=== PATIENT | male | born 2000 | race Caucasian/White ===

== ENCOUNTER 2020-07-02 16:28 | Emergency (ER) | payer OTHER, SELFPAY ==
--- NOTE | ~2020-07-02 | XR_ITS ---
EXAMINATION: XR shoulder LT min 2V DATE: 07/02/2020 17:19 INDICATION: Left shoulder pain. TECHNIQUE: 4 views of left shoulder were obtained. COMPARISON: None. FINDINGS: Bone alignment is normal. No fracture. Glenohumeral joint is normal. There is mild osteoart hritis of the acromioclavicular joint. IMPRESSION: 1. Mild osteoarthritis of the acromioclavicular joint. Reviewed, dictated and finalized at location A. VACUUM TESTER
--- NOTE | ~2020-07-02 | XR_ITS ---
XR elbow LT min 3V 07/02/2020 17:19 Indication: Left elbow pain and swelling Procedure: 4 views left elbow Comparison: No prior studies for comparison. Findings: There is a nondisplaced radial head fracture. Moderate joint effusion. No other fracture is identified. No foreign bodies. Impression: 1: Nondisplaced radial head fracture. Reviewed, dictated and finalized at location A. ITY AUDIT REPRESENTATIVE Impression: 1: Nondisplaced radial head fracture.
[2020-07-02 16:27] VITALS: BP 130/59; PULSE 69; RESP 16; TEMP 37.2; O2SAT 97
--- NOTE | 2020-07-02 16:48 | ED.UPPEXIN ---
HPI - Extremity Injury (Upper) General Chief Complaint: Extremity Injury, Upper Stated Complaint: L SHOULDER INJURY Time Seen by Provider: 07/02/20 16:29 Source: patient Mode of arrival: EMS Limitations: no limitations History of Present Illness HPI narrative: This is a 20-year-old male that presents the emergency department for left shoulder injury sustained just prior to arrival. Reports he was skateboarding and got going a little too fast down a hill. Reports he fell off of his skateboard onto the sidewalk. Reports falling onto his left shoulder. Reports since he has had left shoulder pain and swelling. Also reports decreased range of motion in the shoulder due to pain. Reports discomfort in the left elbow as well. Denies hitting his head, loss of consciousness, vision changes, vomiting, or numbness. Review of Systems Review of Systems: Narrative: CONSTITUTIONAL: Denies fever EYES: Denies visual changes GASTROINTESTINAL: Denies vomiting MUSCULOSKELETAL: Reports joint pain, and myalgia. NEUROLOGIC: Denies headache, numbness, or weakness. All systems reviewed & are unremarkable except as noted in HPI and below PMFSH Past Medical History Medical History (Updated 07/02/20 @ 17:43 by Kylah Larkin PA-C) No active medical problems Social History Social History (Updated 07/02/20 @ 16:50 by Kylah Larkin PA-C) Substance use: never Exam Narrative: Exam Narrative: GENERAL: Well-appearing, well-nourished, and in no acute distress. HEAD: Normocephalic, atraumatic. EYES: PERRLA and EOMI. ENT: Nares clear, no rhinorrhea or epistaxis. Mucous membranes moist. Oropharynx without tonsillar hypertrophy exudate or other lesions. Bilateral TMs pearly maldonado non-bulging NECK: Supple. No adenopathy or masses. No midline cervical spine tenderness CHEST: Clear to auscultation. No respiratory distress. No wheezes rales or rhonchi HEART: Regular rate and rhythm. No murmur heard. Normal peripheral pulses. BACK: No midline thoracic or lumbar spine tenderness EXTREMITIES: Normal range of motion, except mildly decreased active range of motion in the left shoulder due to pain. Left clavicle with mild swelling, tender to palpation. Normal radial pulses. Normal sensation SKIN: Warm, dry, no rash. NEURO: No focal deficits. Alert and oriented x3. Cranial nerves II through XII grossly intact PSYCH: Normal mood and affect Course Vital Signs Vital signs: Vital Signs Temperature 99 F 07/02/20 16:27 Pulse Rate 69 07/02/20 16:27 Respiratory Rate 16 07/02/20 16:27 Blood Pressure 130/59 L 07/02/20 16:27 Pulse Oximetry 97 07/02/20 16:27 Temperature 99 F 07/02/20 16:27 Pulse Rate 69 07/02/20 16:27 Respiratory Rate 16 07/02/20 16:27 Blood Pressure 130/59 L 07/02/20 16:27 Pulse Oximetry 97 07/02/20 16:27 MDM - Extremity Injury (Upper) MDM Narrative Medical decision making narrative: Patient presents to the emergency department for left shoulder and elbow pain after an injury today. Left shoulder x-ray is without acute findings. Elbow x-ray shows a nondisplaced radial head fracture. Patient placed in a sling and will be given orthopedics for follow-up. He was given warnings to return to the ER Imaging Data Radiologist's impression: ITS Impressions Elbow X-Ray 07/02/20 17:23 Impression: 1: Nondisplaced radial head fracture. Shoulder X-Ray 07/02/20 17:23 IMPRESSION: 1. Mild osteoarthritis of the acromioclavicular joint. Critical Care Time Critical Care Time Critical Care Time: No Discharge Plan Discharge Clinical Impression: Closed nondisplaced fracture of head of left radius Qualifiers: Encounter type: initial encounter Qualified Code(s): S52.125A - Nondisplaced fracture of head of left radius, initial encounter for closed fracture Patient Disposition: Home, Self-Care Condition: Stable Instructions: Elbow Fracture (ED) Additional Instructions: Return to the
== END 2020-07-02 18:02 | disposition home or self-care (01) ==
LOC: ANHED 18:06
PROVIDERS: Emergency Provider Emergency Medicine; PCP Family Medicine
DX: S52.125A Nondisplaced fracture of head of left radius, initial encounter for closed fracture (principal); V00.131A Fall from skateboard, initial encounter
CPT/HCPCS: 73030; 73080; 99284; A4565

== ENCOUNTER 2022-07-12 13:36 | Emergency (ER) | payer OTHER, SELFPAY ==
--- NOTE | ~2022-07-12 | XR_ITS ---
XR chest 2V DATE: 07/12/2022 15:10 INDICATION: Shortness of breath, productive cough TECHNIQUE: PA and lateral views COMPARISON: None FINDINGS: Normal heart size. No hilar or mediastinal enlargement. No pulmonary infiltrate or consolid ation, pleural effusion or pulmonary vascular congestion or pneumothorax. Included skeletal structure s are unremarkable. IMPRESSION: Negative Reviewed, dictated and finalized at location B. IMPRESSION: Negative
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
[2022-07-12 13:37] VITALS: BP 139/87; PULSE 70; RESP 18; TEMP 37.3; O2SAT 100
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
[2022-07-12] MEDS: ACETAMINOPHEN 500 MG TABLET 1000 MG PO (15:11)
[2022-07-12 15:58] LABS: Influenza A QL RT-PCR Negative (Negative); Influenza B QL RT-PCR Negative (Negative); SARS-CoV-2 RNA PCR Negative
== END 2022-07-12 16:21 | disposition home or self-care (01) ==
PROVIDERS: Emergency Provider Physician Assistant
DX: S09.90XA Unspecified injury of head, initial encounter (principal); B34.9 Viral infection, unspecified; Z20.822 Contact with and (suspected) exposure to COVID-19; Y04.0XXA Assault by unarmed brawl or fight, initial encounter
CPT/HCPCS: 70450; 70486; 71046; 87636; 99284; A9270

== ENCOUNTER 2022-08-09 16:37 | Emergency (ER) | payer OTHER, SELFPAY ==
[2022-08-09] VITALS (7 sets, daily range): BP systolic 114–137; BP diastolic 66–82; PULSE 53–76; RESP 12–18; TEMP 37–37.2; O2SAT 94–98
--- NOTE | ~2022-08-09 | XR_ITS ---
XR chest 2V DATE: 08/09/2022 17:24 INDICATION: Cough, shortness of breath. Loss of appetite. TECHNIQUE: PA and lateral views COMPARISON: 07/12/2022 PA and lateral chest FINDINGS: Normal heart size. No hilar or mediastinal enlargement. No pulmonary infiltrate or consolid ation, pleural effusion or pulmonary vascular congestion or pneumothorax is detected. IMPRESSION: No active cardiopulmonary disease Reviewed, dictated and finalized at location B.
--- NOTE | 2022-08-09 17:14 | ED.GENADULT ---
HPI - General Adult General Chief complaint: Unspecified <Ana Blum PA-C - Last Filed: 08/09/22 20:22> Stated complaint: decreased appetite. <Ana Blum PA-C - Last Filed: 08/09/22 20:22> Time Seen by Provider: 08/09/22 17:02 <Ana Blum PA-C - Last Filed: 08/09/22 20:22> History of Present Illness HPI narrative: 22 y/o M with a reported history of arthritis and chronic pain reports for evaluation of numbness in his throat x6 days, feeling out of his head for months, cough, difficulty swallowing solid foods and decreased appetite. He denies fever, body aches, abdominal pain, chest pain, n/v. Reports marijuana use, denies other drug use. He denies odynophagia, but reports increasing dysphagia to solid foods. Denies dysphagia to liquids. <EDUARDO Allison Last Filed: 08/09/22 20:22> Related Data Home medications: Home Medications Medication Instructions Recorded Confirmed No Home Medications 07/12/22 07/12/22 <EDUARDO Allison Last Filed: 08/09/22 20:22> Allergies/adverse reactions: Allergies Allergy/AdvReac Type Severity Reaction Status Date / Time amoxicillin Allergy Rash Verified 08/09/22 16:46 <EDUARDO Allison Last Filed: 08/09/22 20:22> Review of Systems Review of Systems: CONSTITUTIONAL: Denies fever, chills EYES: Denies visual changes, redness, or discharge. ENT: See HPI CARDIOVASCULAR: Denies chest pain, palpitations, or edema. RESPIRATORY: See HPI GASTROINTESTINAL: Denies abdominal pain, nausea, vomiting GENITOURINARY: Denies dysuria or hematuria. SKIN: Denies rash or itching. MUSCULOSKELETAL: Denies back pain, joint pain, or myalgia. NEUROLOGIC: Denies headache, dizziness, or weakness. PSYCHIATRIC: Denies anxiety or depression. <EDUARDO Allison Last Filed: 08/09/22 20:22> PMFSH Past Medical History Medical History: Medical History No active medical problems <Ana Blum PA-C - Last Filed: 08/09/22 20:22> Social History Social History: Social History Substance use: never <Ana Blum PA-C - Last Filed: 08/09/22 20:22> Exam Narrative: GENERAL: Well-appearing, well-nourished, and in no acute distress. Patient resting comfortably in exam bed. He is pleasant and conversational. HEAD: Normocephalic, atraumatic. EYES: PERRLA and EOMI. Visual acuity 20/25 lonny, 20/25 R, 20/25 L ENT: Nares clear, no rhinorrhea or epistaxis. Mucous membranes moist. Bilateral tonsils with cobblestoning, no hypertrophy or erythema to tonsils or posterior pharynx. Uvula with scattered petechiae, no uvular deviation or edema. Bilateral TMs pearly maldonado nonbulging NECK: Supple. No adenopathy or masses. No lymphadenopathy. Thyroid normal in size, no goiter appreciated CHEST: Clear to auscultation. No respiratory distress. No wheezes rales or rhonchi HEART: Regular rate and rhythm. No murmur heard. Normal peripheral pulses. ABDOMEN: Soft, nontender, nondistended, normal active bowel sounds. EXTREMITIES: Normal range of motion. No edema. SKIN: Warm, dry, no rash. NEURO: No focal deficits. Alert and oriented x3. Cranial nerves II through XII intact. Uvular rise with phonation. Patient able to swallow. Strength 5/5 in bilateral upper and lower extremities. Sensation intact throughout. Normal gait. PSYCH: Normal mood and affect. <Ana Blum PA-C - Last Filed: 08/09/22 20:22> Course Course Emergency Course: Pt declines Motrin and Tylenol. 193: Awaiting urine sample from patient. Patient sleeping in exam bed. <Ana Blum PA-C - Last Filed: 08/09/22 20:22> CLOAK ROOM ATTENDANT/PA Physician Supervision This is a was performed by both a physician and an APC. I performed all aspects of the MDM as documented w/ the following additions: 22-year-old male presenting with difficulty
[2022-08-09 17:22] LABS: Strep Group A RT-PCR NOT DETECTED (Negative)
[2022-08-09 17:32] LABS: Basophils Absolute Auto 0.1 K/mm3 (0.0-0.1); Basophils Percent Auto 0.7 % (0.2-1.2); Eosinophils Absolute Auto 0.1 K/mm3 (0-0.3); Eosinophils Percent Auto 1.4 % (0-4.4); Hematocrit 47.5 % (42.0-52.0); Immature Granulocyte Absolute 0.02 K/mm3 (0.00-0.031); Immature Granulocyte Percent A 0.3 % (0-0.5); Lymphocytes Absolute Auto 1.82 K/mm3 (0.9-3.2); Lymphocytes Percent Auto 25.1 % (18.3-44.2); Mean Corpuscular HGB Conc 35.8 g/dl (32-36); Mean Corpuscular Hemoglobin 30.4 pg (26-34); Mean Corpuscular Volume 84.8 fl (80-100); Mean Platelet Volume 9.8 fl (7.4-10.4); Monocytes Absolute Auto 0.5 K/mm3 (0.1-0.6); Monocytes Percent Auto 7.2 % (2.6-8.5); Neutrophils Absolute Auto 4.7 K/mm3 (1.3-6.7); Neutrophils Percent Auto 65.3 % (45.5-73.1); Platelet Count Result 197 k/mm3 (150-375); Red Cell Distribution Width 12.3 % (11.5-14.5); White Blood Count 7.3 K/mm3 (4.5-10.0)
[2022-08-09 17:33] LABS: Influenza A QL RT-PCR Negative (Negative); Influenza B QL RT-PCR Negative (Negative); SARS-CoV-2 RNA PCR Negative
[2022-08-09 17:42] LABS: Alanine Aminotransferase 19 U/L (6-50); Albumin Level 5.1 g/dL (3.5-5.1); Alkaline Phosphatase 51 U/L (38-126); Anion Gap 8 mmol/L (8-16); Aspartate Amino Transferase 24 U/L (17-59); Bilirubin,Total 2.4 mg/dL (0.2-1.3); Blood Urea Nitrogen 11 mg/dL (9-20); Calcium 9.5 mg/dL (8.4-10.2); Carbon Dioxide 27 mmol/L (22-30); Chloride 102 mmol/L (98-107); Estimated CRCL calculation 130 ml/min; Estimated Glomerular Filt Rate > 60; Glucose 80 mg/dL (65-110); Potassium 3.9 mmol/L (3.4-5.0); Sodium 137 mmol/L (137-145)
[2022-08-09 17:58] LABS: Monoscreen Negative (Negative); Negative Monotest Control Negative (Negative); Positive Monotest Control Positive (Positive)
[2022-08-09 19:44] LABS: Amphetamine Screen Urine Negative (Negative); Barbiturate Screen Urine Negative (Negative); Benzodiazepines Screen Urine Negative (Negative); Cannabinoid Screen Urine Positive (Negative); Cocaine Screen Urine Negative (Negative); Methadone Screen Urine Negative (Negative); Opiate Screen Urine Negative (Negative); Phencyclidine Screen Urine Negative (Negative)
== END 2022-08-09 20:24 | disposition home or self-care (01) ==
PROVIDERS: Emergency Medicine; Emergency Provider Physician Assistant; PCP Family Medicine
DX: R13.10 Dysphagia, unspecified (principal); Z20.822 Contact with and (suspected) exposure to COVID-19; M19.90 Unspecified osteoarthritis, unspecified site; G89.29 Other chronic pain
CPT/HCPCS: 36415; 71046; 80053; 80307; 84443; 85025; 86308; 87636; 87651; 99283

== ENCOUNTER 2022-08-11 06:00 | Emergency (ER) | payer OTHER, SELFPAY ==
[2022-08-11 06:08] VITALS: BP 135/85; PULSE 77; RESP 18; TEMP 36.9; O2SAT 99
--- NOTE | 2022-08-11 07:21 | PC.NURSE ---
Patient report received from VARUN Restrepo. All questions answered and care of patient assumed.
[2022-08-11] MEDS: SODIUM CHLORIDE 0.9% IV 1,000 ML 999 ML IV CONT (08:20)
[2022-08-11] MEDS: LIDOCAINE HCL 2% VISC SOLN 15 ML UDC PO (08:20)
--- NOTE | 2022-08-11 08:53 | ED.GENADULT ---
HPI - General Adult General Chief complaint: Neck Pain/Injury Stated complaint: Throat pain Time Seen by Provider: 08/11/22 07:03 History of Present Illness HPI narrative: Patient is a 22-year-old male who presents ER with sore throat. Reports last week. He was seen in the ER 2 days ago. Negative COVID and strep testing. Normal labs. Today felt like he could see his epiglottis in the mirror which alarmed him. He has been having sinus congestion with postnasal drip. Also productive cough. No fevers or chills or sweats. No chest pain or chest pressure. Patient reports he gets some tightness in his throat and will feel anxious. Related Data Allergies Allergy/AdvReac Type Severity Reaction Status Date / Time amoxicillin Allergy Rash Verified 08/11/22 07:42 Review of Systems Review of Systems: All systems reviewed & are unremarkable except as noted in HPI and below Constitutional: Constitutional: Denies chills, Denies fatigue and Denies fever(s) ENT: Reports nasal congestion and Reports sore throat Cardiovascular: Cardiovascular: Denies chest pain, Denies rapid heart rate and Denies radiating jaw, neck or arm pain Respiratory: Respiratory: Reports cough and Reports dyspnea Gastrointestinal: Gastrointestinal: Denies abdominal pain, Denies nausea and Denies vomiting PMFSH Past Medical History Medical History No active medical problems Social History Social History Substance use: never Exam Narrative: GENERAL: Well-appearing, well-nourished, and in no acute distress. HEAD: Normocephalic, atraumatic. EYES: PERRL and EOMI. ENT: Mucous membranes moist. Pharyngeal erythema without tonsillar hypertrophy or exudate. Uvula midline and nonedematous. Tolerating oral secretions without issue. NECK: Anterior cervical chain lymphadenopathy, no swelling of the neck with normal range of motion. CHEST: Clear to auscultation. No respiratory distress. HEART: Regular rate and rhythm. Normal peripheral pulses. EXTREMITIES: Normal range of motion. No edema. NEURO: Alert and oriented x3. PSYCH: Normal mood and affect. Course Course Emergency Course: Throat discomfort resolved with viscous lidocaine. Feels improved with IV fluid as he reports feeling brief dizziness today. Educated on treatment plan including throat lozenges for comfort. Patient verbalized understanding. Discharge home. Vital Signs Vital signs: Vital Signs Temperature 98.5 F 08/11/22 06:08 Pulse Rate 77 08/11/22 06:08 Respiratory Rate 18 08/11/22 06:08 Blood Pressure 135/85 08/11/22 06:08 Pulse Oximetry 99 08/11/22 06:08 Temperature 98.5 F 08/11/22 06:08 Pulse Rate 77 08/11/22 06:08 Respiratory Rate 18 08/11/22 06:08 Blood Pressure 135/85 08/11/22 06:08 Pulse Oximetry 99 08/11/22 06:08 Medical Decision Making Vital Signs Vital Signs: Vital Signs Temperature 98.5 F 08/11/22 06:08 Pulse Rate 77 08/11/22 06:08 Respiratory Rate 18 08/11/22 06:08 Blood Pressure 135/85 08/11/22 06:08 Pulse Oximetry 99 08/11/22 06:08 Temperature 98.5 F 08/11/22 06:08 Pulse Rate 77 08/11/22 06:08 Respiratory Rate 18 08/11/22 06:08 Blood Pressure 135/85 08/11/22 06:08 Pulse Oximetry 99 08/11/22 06:08 Discharge Plan Discharge Clinical Impression: Sore throat, URI (upper respiratory infection) Patient Disposition: Still a Patient Condition: Stable Instructions: Upper Respiratory Infection (ED) Additional Instructions: Return the ER if you cannot breathe, you cannot swallow, you lose consciousness, you have additional concerns. Prescriptions: New Cepacol Sore Throat (brenda-men) 15-2.6 mg lozenge 1 luis manuel mucous membrane Q2-4H PRN (Reason: sore throat) Qty: 16 0RF Follow-up/Referrals: Anton Palomo M.D. [Primary Care Provider] - 1 Week
[2022-08-11 09:37] VITALS: BP 125/83; PULSE 54; RESP 16; O2SAT 98
--- NOTE | 2022-08-20 19:52 | PC.NURSE ---
IVFs completed on 08/11/22 at 0920. Unable to document on JUN.
== END 2022-08-11 09:38 | disposition home or self-care (01) ==
PROVIDERS: Emergency Provider Emergency Medicine; PCP Family Medicine
DX: J06.9 Acute upper respiratory infection, unspecified (principal); J20.9 Acute bronchitis, unspecified
CPT/HCPCS: 96360; 99283; J7030

== ENCOUNTER 2022-08-26 13:36 | Outpatient (CLI) | payer OTHER, SELFPAY ==
[2022-09-03 21:52] LABS: Calprotectin, Stool 6 mcg/g
== END 2022-08-26 13:37 | disposition home or self-care (01) ==
LOC: ANHLAB 13:37
PROVIDERS: PCP Family Medicine; Visit Provider Nurse Practitioner Family
DX: R19.7 Diarrhea, unspecified (principal)
CPT/HCPCS: 83993

== ENCOUNTER 2022-09-01 05:46 | Day surgery (SDC) | payer OTHER, SELFPAY ==
[2022-08-26 13:44] VITALS: BMI 23.1
[2022-09-01 09:01] VITALS: BP 120/75; PULSE 55; RESP 15; TEMP 36.6; O2SAT 98; BMI 22.4
[2022-09-01] MEDS: LACTATED RINGERS 1,000 ML 150 ML IV CONT (09:09)
--- NOTE | 2022-09-01 09:35 | WPDANESEPPF ---
Anes - Initial Pre Proc Eval Procedure: Operation Date: 09/01/22 10:15 Proposed Procedures p Esophagogastroduodenoscopy - Wagner Nuñez MD Date/Time: 09/01/22 09:35 Surgeon: Wagner Nuñez MD Pre Op Diagnosis: dysphagia Patient Data Age: 22 Gender: M Height: 1.8 m Weight: 73 kg Last Vital Signs Temp 98 F 09/01/22 09:01 Pulse 55 L 09/01/22 09:01 Resp 15 09/01/22 09:01 BP 120/75 09/01/22 09:01 Pulse Ox 98 09/01/22 09:01 O2 Del Method Room Air 09/01/22 09:01 Allergies Allergy/AdvReac Type Severity Reaction Status Date / Time amoxicillin Allergy Rash Verified 09/01/22 09:00 Home Medications Medication Instructions Recorded Confirmed Type Vitamin C 1 tab-cap PO DAILY 08/26/22 09/01/22 History Vitamin D3 1 tab-cap PO DAILY 08/26/22 09/01/22 History Patient hx anesthesia problems: none Family hx anesthesia problems: none Results Review: All pre-operative results and documents have been reviewed as part of the pre-operative evaluation. [facility] Past Medical History Medical History (Updated 08/25/22 @ 14:07 by Jim Caba) Arthritis No active medical problems Social History Social History Smoking status: Never smoker Alcohol intake: never Substance use: current Substance use type: marijuana Living arrangements: with roommate(s) Spiritual care concerns: No Anes - Eval Final PreProcedure Day of Procedure 09/01/22 09:35 Patient weight: normal Heart: regular rate and rhythm Lungs: clear to auscultation Airway: Mallampati scale class II Neurological: alert and oriented Last oral intake: >/= 8 hours ASA classification: II Emergent: no Anesthetic plan: proceed Anesthesia type and monitoring: general GIVS and standard monitoring Results Review: All pre-operative results and documents have been reviewed as part of the pre-operative evaluation. Informed Consent: The patient's anesthetic plan and its attendant risks and benefits were discussed with the patient/family/POA. Questions were solicited and answers provided to the satisfaction of the patient/family/POA.
--- NOTE | 2022-09-01 09:53 | WPDHPUPDATE1 ---
History and Physical Update Update Date/Time: 09/01/22 09:53 History and Physical has been reviewed, including an updated exam of the patient. There are NO changes in the patient's condition. Risks, benefits, and alternatives have been discussed and questions answered. Patient agrees to proceed with procedure.
[2022-09-01 10:10] VITALS: BP 112/67; PULSE 60; RESP 20; O2SAT 97
[2022-09-01 10:20] VITALS: BP 115/71; PULSE 58; RESP 21; O2SAT 97
[2022-09-01 10:30] VITALS: BP 104/67; PULSE 54; RESP 16; O2SAT 98
== END 2022-09-01 10:33 | disposition home or self-care (01) ==
PROVIDERS: PCP Family Medicine; Visit Provider Internal Medicine Gastroenterology
PROC: 0DJ08ZZ Inspection of Upper Intestinal Tract, Via Natural or Artificial Opening Endoscopic (ICD-10-PCS; CPT 43235; principal; 2022-09-01 10:15)
DX: R13.10 Dysphagia, unspecified (principal); K44.9 Diaphragmatic hernia without obstruction or gangrene
CPT/HCPCS: 43239; 88305; J2704; J7120

== ENCOUNTER 2023-07-22 15:36 | Emergency (ER) | payer OTHER, SELFPAY ==
--- NOTE | ~2023-07-22 | US_ITS ---
EXAMINATION: US scrotum doppler DATE: 07/22/2023 18:42 INDICATION: L testicular pain, intermittent, blood in semen . TECHNIQUE: Grayscale and Doppler ultrasound images of the testes were obtained. COMPARISON: None. FINDINGS: The right testis measures 4.1 x 2.0 x 2.2 cm. The left testis measures 4.1 x 2.1 x 2.6 cm. No testicular mass. There is normal vascular flow to both testes. The right epididymis is normal with normal vascular flow. The left epididymis is normal with normal vascular flow. No hydrocele. Small l eft varicocele. IMPRESSION: Small left varicocele. Otherwise normal scrotal ultrasound findings. Reviewed, dictated and finalized at location K.
[2023-07-22 16:38] VITALS: BP 130/64; PULSE 64; RESP 16; TEMP 37; O2SAT 99
--- NOTE | 2023-07-22 16:41 | ED.MALEGU ---
HPI - Male Genitourinary General Chief complaint: Urogenital-Male <Klyah Larkin PA-C - Last Filed: 07/24/23 10:17> Stated complaint: blood with ejaculation <Kylah Larkin PA-C - Last Filed: 07/24/23 10:17> Time Seen by Provider: 07/22/23 16:41 <Kylah Larkin PA-C - Last Filed: 07/24/23 10:17> Focused HPI: This is a 23 year old male that presents to the ER for blood in his ejaculate today. Reports his girlfriend lives far away so he masturbates frequently. He had blood in his ejaculate today which concerned him and prompted him to be seen. Denies fevers, dysuria or rashes. GENERAL: Well-appearing, well-nourished, and in no acute distress. HEAD: Normocephalic, atraumatic. CHEST: Clear to auscultation. ?No respiratory distress. HEART: Regular rate and rhythm.? NEURO: ?Alert and oriented x3. Patient screened in triage and initial orders placed.? ?Additional care and disposition to be based upon?diagnostic testing and treatment. <Kylah Larkin PA-C - Last Filed: 07/24/23 10:17> Focused HPI: This is a 23 year old male that presents to the ER for blood in his ejaculate today. Reports his girlfriend lives far away so he masturbates frequently. He had blood in his ejaculate today which concerned him and prompted him to be seen. Denies fevers, dysuria or rashes. GENERAL: Well-appearing, well-nourished, and in no acute distress. HEAD: Normocephalic, atraumatic. CHEST: Clear to auscultation. ?No respiratory distress. HEART: Regular rate and rhythm.? NEURO: ?Alert and oriented x3. Patient screened in triage and initial orders placed.? ?Additional care and disposition to be based upon?diagnostic testing and treatment. <EDUARDO Ryan Last Filed: 07/22/23 21:34> Source: patient <EDUARDO Ryan Last Filed: 07/22/23 21:34> Mode of arrival: ambulatory <Linn Rodarte PA-C - Last Filed: 07/22/23 21:34> Limitations: no limitations <Linn Rodarte PA-C - Last Filed: 07/22/23 21:34> History of Present Illness HPI Narrative: Agree with above MSE documentation. Patient reports he masturbates 1-2 times per day. He has never had similar symptoms in the past. Reported he urinated right after ejaculating and denied blood in the urine. Reports intermittent left-sided testicular pain, denies pain currently. Denies abdominal or back pain. Denies concern for STDs. <Linn Rodarte PA-C - Last Filed: 07/22/23 21:34> Related Data Home medications: Home Medications Medication Instructions Recorded Confirmed Vitamin C 1 tab-cap PO DAILY 08/26/22 09/01/22 Vitamin D3 1 tab-cap PO DAILY 08/26/22 09/01/22 <Kylah Larkin PA-C - Last Filed: 07/24/23 10:17> Allergies/Adverse reactions: Allergies Allergy/AdvReac Type Severity Reaction Status Date / Time amoxicillin Allergy Rash Verified 07/22/23 16:46 <Kylah Larkin PA-C - Last Filed: 07/24/23 10:17> Review of Systems Review of Systems: CONSTITUTIONAL: Denies fever, chills, or sweats. GASTROINTESTINAL: Denies abdominal pain, nausea, vomiting. GENITOURINARY: See HPI. MUSCULOSKELETAL: Denies back or flank pain. <Linn Rodarte PA-C - Last Filed: 07/22/23 21:34> All systems reviewed & are unremarkable except as noted in HPI and below <Linn Rodarte PA-C - Last Filed: 07/22/23 21:34> PMFSH Past Medical History Medical History: Medical History Arthritis No active medical problems <Kylah Larkin PA-C - Last Filed: 07/24/23 10:17> Social History Social History: Social History Smoking status: Never smoker Alcohol intake: never Substance use: current Substance use type: marijuana Living arrangements: with roommate(s) Spiritual care concerns: No <Kylah Larkin PA-C - Last Filed: 07/24/23 10:17>
[2023-07-22 16:58] LABS: Appearance Urine Clear (Clear); Bilirubin Urine Negative (Negative); Blood Urine Negative (Negative); Color Urine Yellow (Yellow); Glucose Urine UA Negative (Negative); Ketones Urine Negative (Negative); Leukocyte Esterase Ur Negative LEU/UL (Negative); Nitrate Urine Negative (Negative); Protein Urine Negative (Negative); Urobilinogen Urine 0.2 mg/dL (<2.0); pH Urine 7.5 (5.0-9.0)
[2023-07-22 17:03] LABS: Add Urine Microscopic? NO
[2023-07-22 18:04] LABS: Trichomonas Vag PCR NOT DETECTED (NOT DETECTE)
[2023-07-22 18:26] LABS: Chlamydia trachomatis NOT DETECTED (NOT DETECTE); Neisseria gonorrhoeae PCR NOT DETECTED (NOT DETECTE)
== END 2023-07-22 19:09 | disposition home or self-care (01) ==
PROVIDERS: Physician Assistant; Emergency Provider Physician Assistant; PCP Family Medicine
DX: R36.1 Hematospermia (principal); I86.1 Scrotal varices
CPT/HCPCS: 76870; 81003; 87491; 87591; 87661; 93976; 99284